=== PATIENT | male | born 1990 | race Caucasian/White ===

== ENCOUNTER 2020-08-05 22:21 | Emergency (ER) | payer MEDICAID ==
[~2020-08-05] VITALS: Ht 215.9 cm; Wt 104.3 kg
[2020-08-05 22:56] VITALS: BP 146/91
[2020-08-05] MEDS ORDERED: LIDOCAINE HCL/MPF 1% 30 ML VIAL IJ ONE (23:24)
--- NOTE | 2020-08-06 00:19 | NUR ---
ER AT BEDSIDE
[2020-08-06] MEDS ORDERED: LIDOCAINE HCL/PF 1% 30 ML SDV IJ ONE (00:30)
== END 2020-08-06 01:10 | disposition home or self-care (01) ==
LOC: ER 22:25
DX: S61.411A Laceration without foreign body of right hand, initial encounter (principal); W26.8XXA Contact with other sharp object(s), not elsewhere classified, initial encounter; Y93.89 Activity, other specified; Y92.89 Other specified places as the place of occurrence of the external cause; Y99.8 Other external cause status
CPT/HCPCS: 12001; 99282; A6403; J3490